=== PATIENT | female | born 1960 | race Caucasian/White ===

== ENCOUNTER → 2017-02-09 | Outpatient (CLI) | payer OTHER ==
--- NOTE | 2017-02-09 15:09 | REP ---
Whole body radionuclide bone scan: History: History breast carcinoma, question metastasis. Neck pain. The patient reports history of fracture of the fifth toe of the left foot in August 2016. Technique: 21.0 mCi of technetium 99m MDP is injected and standard whole body bone scan imaging is acquired. Scintigraphic findings: There is uptake in bilateral kidneys and in the urinary bladder. There is arthritic uptake involving the metatarsal phalangeal joints of both great toes and there is an area of increased uptake in the left fifth proximal phalanx region consistent with a history of recent fracture. There is mild arthritic uptake in the acromioclavicular joints bilaterally and in the mid cervical spine facet joints on the right. There is no evidence to suggest skeletal metastatic disease. Impression: No evidence of bony metastatic disease. Signed by Kobe Olvera MD 02/09/2017 05:08 P
== END ==
LOC: M RAD 10:04
PROVIDERS: ATTEND Internal Medicine Hematology
DX: C50.919 Malignant neoplasm of unspecified site of unspecified female breast (principal); M54.2 Cervicalgia

== ENCOUNTER → 2021-02-05 | Outpatient (REF) | payer OTHER | LOC: M LAB REF 14:08 | PROVIDERS: ATTEND Dermatology | DX: C44.629 Squamous cell carcinoma of skin of left upper limb, including shoulder (principal) ==

== ENCOUNTER → 2021-06-13 | Outpatient (REF) | payer OTHER | LOC: M LAB REF 19:30 | PROVIDERS: ATTEND Dermatology | DX: C44.602 Unspecified malignant neoplasm of skin of right upper limb, including shoulder (principal) ==

== ENCOUNTER → 2022-07-15 | Outpatient (REF) | payer OTHER | LOC: M SFHCDERM 17:35 | PROVIDERS: ATTEND Physician Assistant | DX: D04.22 Carcinoma in situ of skin of left ear and external auricular canal (principal) ==

== ENCOUNTER → 2024-07-03 | Outpatient (REF) | payer OTHER | LOC: M SFHCDERM 17:09 | PROVIDERS: ATTEND Physician Assistant | DX: C44.301 Unspecified malignant neoplasm of skin of nose (principal) ==

== ENCOUNTER → 2024-08-10 | Outpatient (CLI) | payer OTHER | LOC: M ONCR 07:51 | PROVIDERS: ATTEND General Practice | DX: C44.311 Basal cell carcinoma of skin of nose (principal); Z80.8 Family history of malignant neoplasm of other organs or systems; Z85.3 Personal history of malignant neoplasm of breast; Z90.13 Acquired absence of bilateral breasts and nipples ==

== ENCOUNTER 2024-09-06 10:54 | Outpatient (RCR) | payer OTHER | END 2024-09-19 | LOC: M ONCR 10:54 | PROVIDERS: ATTEND General Practice | DX: Z51.0 Encounter for antineoplastic radiation therapy (principal); C44.311 Basal cell carcinoma of skin of nose ==

== ENCOUNTER → 2024-10-20 | Outpatient (RCR) | payer MEDICARE, OTHER | LOC: M ONCR 09-28 10:19 | PROVIDERS: ATTEND General Practice | DX: Z51.0 Encounter for antineoplastic radiation therapy (principal); C44.311 Basal cell carcinoma of skin of nose ==

== ENCOUNTER 2024-11-09 10:26 | Outpatient (RCR) | payer MEDICARE | END 2024-11-17 | LOC: M ONCR 10:26 | PROVIDERS: ATTEND General Practice | DX: Z51.0 Encounter for antineoplastic radiation therapy (principal); C44.311 Basal cell carcinoma of skin of nose ==

== ENCOUNTER → 2024-12-07 | Outpatient (CLI) | payer MEDICARE | LOC: M ONCR 11:50 | PROVIDERS: ATTEND General Practice | DX: Z08 Encounter for follow-up examination after completed treatment for malignant neoplasm (principal); Z85.828 Personal history of other malignant neoplasm of skin; Z92.3 Personal history of irradiation ==

== ENCOUNTER → 2025-05-29 | Outpatient (CLI) | payer MEDICARE | LOC: M ONCR 14:07 | PROVIDERS: ATTEND General Practice | DX: Z08 Encounter for follow-up examination after completed treatment for malignant neoplasm (principal); Z85.828 Personal history of other malignant neoplasm of skin; Z92.3 Personal history of irradiation ==